=== PATIENT | male | born 1990 | race Caucasian/White ===

== ENCOUNTER 2018-11-21 20:48 | Emergency (ER) | payer SELFPAY ==
[2016-09-05 18:55] VITALS: Wt 108.0 kg
[~2018-11-21 20:48] MED LIST: BUPR-472 PO; CEPH500C24 PO; HYDR-385 PO; HYDR-653 PO; KET10 PO; LOR5/325 PO; MULT-865 PO; OMEP-137 PO; OMEP40CA48 PO; ONDA4TAB PO
[2018-11-21] MEDS ORDERED: ONDANSETRON 4 MG/2 ML VIAL IVP ONE (21:05)
[2018-11-21] MEDS ORDERED: NS(*) 0.9% 1000 ML BAG 1,000 ML IV ONE ×2 (21:05→22:50)
[2018-11-21] MEDS ORDERED: MORPHINE 4 MG/ML SDV IVP ONE (21:05)
[2018-11-21] MEDS ORDERED: ALBUTEROL/IPRATROPIUM 3 ML NEB NEB ONE (21:05)
--- NOTE | 2018-11-21 21:09 | ER Report ---
History and Physical Time Seen By MD: 20:57 Hx. of Stated Complaint: Pt. having chest pain and SOB since Noon today. Hypoxic 89% on room air. HR 123. BP 146/106. Low grade temp, 99.8. Productive cough, with white phlem. Diaphoretic. Midsternal chest pain /10. HPI/ROS CHIEF COMPLAINT: chest pain and shortness of breath HISTORY OF PRESENT ILLNESS: This is a 28 year old male. He started having chest pain and shortness of breath earlier today at about noon. Worsening, now very severe. Worsens with deep breaths. Seems deep in bases of lung area. Has some pain into abdomen as well. Has had a nonproductive cough. Has had some fevers as well. Nausea but no vomiting. No changes to urination or bowels. He denies history of heart problems or lung problems. He does drink a large amount daily, stopped 2 days ago. No recent travel. No known sick contacts. REVIEW OF SYSTEMS: Constitutional: Fevers as noted. Eyes: No vision changes. ENT: No sore throat. No congestion. Cardiovascular: No palpitations. Respiratory: As above. Gastrointestinal: As above. Genitourinary: As above. Musculoskeletal: Has some muscle aches. Skin: No rashes. Neurological: No weakness. Mild headache. Allergies: Coded Allergies: No Known Drug Allergies (Unverified , 11/21/18) Home Meds Active Scripts Omeprazole (OMEPRAZOLE) 20 Mg Capsule.dr, 1 CAP PO BID, #20 CAP 0 Refills Prov:GORGE ESPITIA MD 11/22/18 Lorazepam (ATIVAN) 0.5 Mg Tablet, 0.5 MG PO Q6H for 3 Days, #10 TAB 0 Refills Prov:GORGE ESPITIA MD 11/22/18 Oseltamivir Phosphate (TAMIFLU) 75 Mg Cap, 75 MG PO BID, #10 CAP 0 Refills Prov:GORGE ESPITIA MD 11/22/18 Hydrocodone Bit/Acetaminophen (HYDROCODON-ACETAMINOPHEN 5-325) 1 Each Tablet, 1 EACH PO Q4-6H PRN for PAIN, #12 TAB 0 Refills Prov:ALEXA GUALLPA CERTIFIED MEDICAL TECHNICIAN ASSISTANT-BC 02/23/18 Hydrocodone Bit/Acetaminophen (HYDROCODON-ACETAMINOPHEN 5-325) 1 Each Tablet, 1 EACH PO Q4-6H PRN for PAIN, #12 TAB Prov:KATIEMICHAEL QUEVEDOMARSHALL Blanca CERTIFIED MEDICAL TECHNICIAN ASSISTANT-BC 02/22/18 Ondansetron (ZOFRAN ODT) 4 Mg Tab.rapdis, 4 MG PO Q6H PRN for NAUSEA/VOMITING, #20 TAB.ANA CRISTINA Prov:ALEXA GUALLPA CERTIFIED MEDICAL TECHNICIAN ASSISTANT-BC 02/22/18 Hydrocodone Bit/Acetaminophen (HYDROCODON-ACETAMINOPHEN 5-325) 1 Each Tablet, 1- 2 EACH PO Q4-6H PRN for PAIN, #30 TAB Prov:MARCY ALLEN MD 12/25/16 Ketorolac Tromethamine (KETOROLAC TROMETHAMINE) 10 Mg Tab, 10 MG PO Q6H, #16 TAB Prov:MARCY ALLEN MD 12/25/16 Reported Medications Omeprazole (OMEPRAZOLE) 20 Mg Tablet.dr, 20 MG PO QDAY TAKE ONE TABLET BY MOUTH ONCE A DAY 10/18/14 Reviewed Nurses Notes: Yes Hx Smoking: Yes Smoking Status: Light Tobacco Smoker Exposure to Second Hand Smoke?: No Hx Substance Use Disorder: Yes (pot) Hx Alcohol Use: Yes Constitutional Vital Sign - Last 24 Hours 11/21/18 11/21/18 11/21/18 11/21/18 20:48 20:52 20:52 21:00 Temp 99.8 Pulse 125 115 Resp 20 B/P (MAP) 146/106 146/106 (119) 116/104 (108) Pulse Ox 88 O2 Delivery Room Air 11/21/18 11/21/18 11/21/18 11/21/18 21:18 21:20 21:20 21:26 Pulse 111 122 123 Resp Pulse Ox 97 94 O2 Delivery Nasal Cannula O2 Flow Rate 3.0 11/21/18 11/21/18 11/21/18 11/21/18 21:30 21:48 22:00 22:18 Pulse 110 108 B/P (MAP) 132/118 (123) 148/90 (109) Pulse Ox 99 100 11/21/18 11/21/18 11/21/18 11/21/18 22:30 22:30 23:10 23:30 Pulse 107 106 Resp 26 B/P (MAP) 116/71 (86) 116/71 (86) 129/61 (83) 109/49 (69) Pulse Ox 82 99 11/22/18 11/22/18 11/22/18 11/22/18 00:00 00:05 00:30 00:34 Pulse 103 103 Resp 22 26 B/P (MAP) 112/45 (67) 109/42 (64) Pulse Ox 91 O2 Delivery Room Air 11/22/18 00:35 Pulse 106 Resp 21 Physical Exam General Appearance: The patient is alert. No acute distress. Eyes: Pupils are equal, round. No pallor, injection or icterus. ENT: Mucous membranes are moist. Normal oral mucosa. Posterior oropharynx is normal. Neck: Supple and non tender. Respiratory: Lungs are diminished throughout, having some rhonchi. No wheezing or rales noted. Cardiovascular: Regular rate and rhythm. No murmurs, gallops or rubs. Normal capillary refill. Gastrointestinal: Abdomen is soft and non tender. Nondistended. Normal active bowel sounds. No costovertebral angle tenderness with percussion. Neurological: Alert and oriented x3. No focal neurologic deficits Skin: Warm and diaphoretic. Musculoskeletal: Extremities are nontender. DIFFERENTIAL DIAGNOSIS: After history and physical exam, differential diagnosis was considered for shortness of breath including but not limited to pulmonary infectious process, pericarditis, cardiac problem. alcohol withdrawal, pulmonary embolism, viral syndromes. Medical Decision Making Data Points Result Diagram: 11/21/18210311/21/182103 Laboratory Hematology Test 11/21/18 20:54 11/21/18 21:04 11/21/18 21:35 11/21/18 23:07 Influenza Virus Type A (PCR) Positive (NEGATIVE) Influenza Virus Type B (PCR) Negative (NEGATIVE) Red Blood Count 5.55 M/uL (4.00-5.60) Mean Corpuscular Volume 84.6 fL (80.0-96.0) Mean Corpuscular Hemoglobin 29.3 pg (26.0-33.0) Mean Corpuscular Hemoglobin Concent 34.7 g/dL (32.0-36.0) Red Cell Distribution Width 14.1 % (11.5-14.5) Mean Platelet Volume 9.2 fL (7.2-11.1) Neutrophils (%) (Auto) 81.0 % (39.4-72.5) Lymphocytes (%) (Auto) 6.4 % (17.6-49.6) Monocytes (%) (Auto) 11.0 % (4.1-12.4) Eosinophils (%) (Auto) 1.2 % (0.4-6.7) Basophils (%) (Auto) 0.4 % (0.3-1.4) Nucleated RBC Relative Count (auto) 0.0 /100WBC Neutrophils # (Auto) 6.1 K/uL (2.0-7.4) Lymphocytes # (Auto) 0.5 K/uL (1.3-3.6) Monocytes # (Auto) 0.8 K/uL (0.3-1.0) Eosinophils # (Auto) 0.1 K/uL (0.0-0.5) Basophils # (Auto) 0.0 K/uL (0.0-0.1) Nucleated RBC Absolute Count (auto) 0.00 K/uL D-Dimer Quantitative (PE/DVT) 0.31 ug/ml (0-0.50) Sodium Level 138 mmol/L (137-145) Potassium Level 4.3 mmol/L (3.5-5.0) Chloride Level 108 mmol/L (98-107) Carbon Dioxide Level 20 mmol/L (22-30) Blood Urea Nitrogen 12 mg/dl (9-21) Creatinine 1.10 mg/dl (0.66-1.25) Glomerular Filtration Rate Calc > 60.0 Random Glucose 101 mg/dl (75-110) Lactate 1.3 mmol/L (0.7-2.1) Calcium Level 10.2 mg/dl (8.4-10.2) Total Bilirubin 1.5 mg/dl (0.2-1.3) Aspartate Amino Transf (AST/SGOT) 44 U/L (0-35) Alanine Aminotransferase (ALT/SGPT) 50 U/L (0-56) Alkaline Phosphatase 92 U/L (0-126) Troponin I < 0.012 ng/ml Total Protein 8.3 g/dl (6.3-8.2) Albumin 5.0 g/dl (3.5-5.0) Amylase Level 57 U/L (0-110) Lipase 106 U/L (23-300) Erythrocyte Sedimentation Rate 7 mm/HOUR (0-15) C-Reactive Protein 1.8 mg/dl (<1.0) Urine Color Yellow Urine Clarity Clear Urine pH 6.0 pH (4.8-9.5) Urine Specific [place] 1.016 Urine Protein Negative mg/dL (NEGATIVE) Urine Glucose (UA) Negative mg/dL (NEGATIVE) Urine Ketones 20 mg/dL (NEGATIVE) Urine Blood Negative (NEGATIVE) Urine Nitrite Negative (NEGATIVE) Urine Bilirubin Negative (NEGATIVE) Urine Urobilinogen Negative mg/dL (0.2-1.9) Urine Leukocyte Esterase Negative (NEGATIVE) Urine RBC <1 /HPF (0-2/HPF) Urine WBC 1 /HPF (0-5/HPF) Urine Squamous Epithelial Cells None /LPF (</=FEW) Urine Bacteria Negative /HPF (NONE-FEW) Urine Mucus None /HPF (NONE-FEW) Chemistry Test 11/21/18 20:54 11/21/18 21:04 11/21/18 21:35 11/21/18 23:07 Influenza Virus Type A (PCR) Positive (NEGATIVE) Influenza Virus Type B (PCR) Negative (NEGATIVE) White Blood Count 7.5 k/uL (4.5-11.0) Red Blood Count 5.55 M/uL (4.00-5.60) Hemoglobin 16.3 g/dL (14.0-18.0) Hematocrit 47.0 % (42.0-52.0) Mean Corpuscular Volume 84.6 fL (80.0-96.0) Mean Corpuscular Hemoglobin 29.3 pg (26.0-33.0) Mean Corpuscular Hemoglobin Concent 34.7 g/dL (32.0-36.0) Red Cell Distribution Width 14.1 % (11.5-14.5) Platelet Count 189 K/uL (150-450) Mean Platelet Volume 9.2 fL (7.2-11.1) Neutrophils (%) (Auto) 81.0 % (39.4-72.5) Lymphocytes (%) (Auto) 6.4 % (17.6-49.6) Monocytes (%) (Auto) 11.0 % (4.1-12.4) Eosinophils (%) (Auto) 1.2 % (0.4-6.7) Basophils (%) (Auto) 0.4 % (0.3-1.4) Nucleated RBC Relative Count (auto) 0.0 /100WBC Neutrophils # (Auto) 6.1 K/uL (2.0-7.4) Lymphocytes # (Auto) 0.5 K/uL (1.3-3.6) Monocytes # (Auto) 0.8 K/uL (0.3-1.0) Eosinophils # (Auto) 0.1 K/uL (0.0-0.5) Basophils # (Auto) 0.0 K/uL (0.0-0.1) Nucleated RBC Absolute Count (auto) 0.00 K/uL D-Dimer Quantitative (PE/DVT) 0.31 ug/ml (0-0.50) Glomerular Filtration Rate Calc > 60.0 Lactate 1.3 mmol/L (0.7-2.1) Calcium Level 10.2 mg/dl (8.4-10.2) Total Bilirubin 1.5 mg/dl (0.2-1.3) Aspartate Amino Transf (AST/SGOT) 44 U/L (0-35) Alanine Aminotransferase (ALT/SGPT) 50 U/L (0-56) Alkaline Phosphatase 92 U/L (0-126) Troponin I < 0.012 ng/ml Total Protein 8.3 g/dl (6.3-8.2) Albumin 5.0 g/dl (3.5-5.0) Amylase Level 57 U/L (0-110) Lipase 106 U/L (23-300) Erythrocyte Sedimentation Rate 7 mm/HOUR (0-15) C-Reactive Protein 1.8 mg/dl (<1.0) Urine Color Yellow Urine Clarity Clear Urine pH 6.0 pH (4.8-9.5) Urine Specific [place] 1.016 Urine Protein Negative mg/dL (NEGATIVE) Urine Glucose (UA) Negative mg/dL (NEGATIVE) Urine Ketones 20 mg/dL (NEGATIVE) Urine Blood Negative (NEGATIVE) Urine Nitrite Negative (NEGATIVE) Urine Bilirubin Negative (NEGATIVE) Urine Urobilinogen Negative mg/dL (0.2-1.9) Urine Leukocyte Esterase Negative (NEGATIVE) Urine RBC <1 /HPF (0-2/HPF) Urine WBC 1 /HPF (0-5/HPF) Urine Squamous Epithelial Cells None /LPF (</=FEW) Urine Bacteria Negative /HPF (NONE-FEW) Urine Mucus None /HPF (NONE-FEW) Coagulation Test 11/21/18 21:04 D-Dimer Quantitative (PE/DVT) 0.31 ug/ml Urinalysis Test 11/21/18 23:07 Urine Color Yellow Urine Clarity Clear Urine pH 6.0 pH (4.8-9.5) Urine Specific [place] 1.016 Urine Protein Negative mg/dL (NEGATIVE) Urine Glucose (UA) Negative mg/dL (NEGATIVE) Urine Ketones 20 mg/dL (NEGATIVE) Urine Blood Negative (NEGATIVE) Urine Nitrite Negative (NEGATIVE) Urine Bilirubin Negative (NEGATIVE) Urine Urobilinogen Negative mg/dL (0.2-1.9) Urine Leukocyte Esterase Negative (NEGATIVE) Urine RBC <1 /HPF (0-2/HPF) Urine WBC 1 /HPF (0-5/HPF) Urine Squamous Epithelial Cells None /LPF (</=FEW) Urine Bacteria Negative /HPF (NONE-FEW) Urine Mucus None /HPF (NONE-FEW) EKG/Imaging EKG Interpretation 12 lead EKG: Rhythm: sinus tachycardia, rate 123 [place]: normal QRS: normal ST segments: normal Imaging EXAMINATION: Portable AP Chest HISTORY: Chest pain, shortness of breath. COMPARISON: None. FINDINGS: The lungs are clear. No focal consolidation or pleural effusion. No pneumothorax. Normal cardiomediastinal silhouette, with normal heart size and pulmonary vascularity. Visualized osseous structures are unremarkable. IMPRESSION: Negative chest. Report Dictated By: Johnny Velez MD at 11/21/2018 9:39 PM ED Course/Re-evaluation Clinical Indication for ER IV: Hydration, IV Access ED Course Initial evaluation, the patient was given a liter of normal saline, Zofran, and some morphine for pain. Did not really help a lot. He had a nebulizer treatment which perhaps helped a little bit. Went back in he is having possible withdrawal symptoms so did give him a little bit of Ativan. Also gave another liter of normal saline and some Toradol for pain. Then gave him Protonix and a GI cocktail. This helped him and he was feeling better. She levels also are impr courtney to 92% on room air. Discussed the symptoms with him and it appears he has alcoholic related gastritis as well as influenza. The rest of labs are unremarkable. We'll start him on Tamiflu. Also start him on omeprazole. Provided some Ativan to help with withdrawal symptoms and recommended to stop drinking. Decision to Disposition Date: Nov 22, 2018 Decision to Disposition Time: 00:24 Depart Departure Latest Vital Signs Vital Signs Date Time Temp Pulse Resp B/P (MAP) Pulse Ox O2 Delivery O2 Flow Rate FiO2 11/22/18 00:35 106 21 11/22/18 00:34 91 Room Air 11/22/18 00:30 109/42 (64) 11/21/18 21:20 3.0 11/21/18 20:52 99.8 Impression: Primary Impression: Influenza A Additional Impression: Gastritis Condition: Improved Disposition: HOME OR SELF-CARE New Scripts Omeprazole (OMEPRAZOLE) 20 Mg Capsule.dr 1 CAP PO BID, #20 CAP 0 Refills Prov: GORGE ESPITIA MD 11/22/18 Lorazepam (ATIVAN) 0.5 Mg Tablet 0.5 MG PO Q6H for 3 Days, #10 TAB 0 Refills Prov: GORGE ESPITIA MD 11/22/18 Oseltamivir Phosphate (TAMIFLU) 75 Mg Cap 75 MG PO BID, #10 CAP 0 Refills Prov: GORGE ESPITIA MD 11/22/18 Patient Instructions: Diet for Stomach Ulcers and Gastritis (ED), Gastritis (ED), Influenza (ED) Additional Instructions: You have influenza. Take Tamiflu 75mg twice a day for 5 days. Some of your symptoms are due to alcohol withdrawal and alcohol gastritis (inflammation and pain in the stomach from alcohol use). Take Omeprazole 20mg twice a day for the next two weeks. For withdrawal symptoms, you can take Ativan 0.5mg tablets every 6 hours as needed for withdrawal symptoms. Do not drink alcohol while taking this medicine. Problem Qualifiers Additional Impression: Gastritis Gastritis type: alcoholic Chronicity: acute Gastritis bleeding: without bleeding Qualified Codes: K29.20 - Alcoholic gastritis without bleeding GORGE ESPITIA MD Nov 21, 2018 21:09
[2018-11-21 21:21] LABS: PLATELET COUNT, AUTOMATED 189 K/uL (150-450)
--- NOTE | 2018-11-21 21:43 | RADIOLOGY IMAGING REPORT ---
FACILITY: [facility] PATIENT NAME: Adalberto Jarvis : 1990 MR: [id number] V: [id number] EXAM DATE: ORDERING PHYSICIAN: GORGE ESPITIA TECHNOLOGIST: Location: [facility] Patient: Adalberto Jarvis : 1990 Visit/Account:[id number] Date of Sevice: 11/21/2018 EXAMINATION: Portable AP Chest HISTORY: Chest pain, shortness of breath. COMPARISON: None. FINDINGS: The lungs are clear. No focal consolidation or pleural effusion. No pneumothorax. Normal cardiomedi astinal silhouette, with normal heart size and pulmonary vascularity. Visualized osseous structures are unremarkable. IMPRESSION: Negative chest. Report Dictated By: Johnny Velez MD at 11/21/2018 9:39 PM Report E-Signed By: Johnny Velez MD at 11/21/2018 9:39 PM WSN:[id number]
--- NOTE | 2018-11-21 22:26 | EKG ---
[place] [facility] [place] SAM ASIF : [id number] MR: [id number] V: [id number] EXAM DATE: ORDERING PHYSICIAN: GORGE ESPITIA TECHNOLOGIST: KODY Boykin Reason : Blood Pressure : / mmHG Vent. Rate : 123 BPM Atrial Rate : 123 BPM P-R Int : 132 ms QRS Dur : 082 ms QT Int : 296 ms P-R-T Axes : 015 042 019 degrees QTc Int : 423 ms Sinus tachycardia Otherwise normal ECG No previous ECGs available Confirmed by Gildardo Enriquez [id number] on 11/21/2018 10:51:10 PM Referred By: Confirmed By:Gildardo Mendez
[2018-11-21] MEDS ORDERED: LORazepam 2 MG/ML VIAL IVP ONE (22:50)
[2018-11-21] MEDS ORDERED: MAG HYD/AL HYD/SIMETH 30ML UDC PO ONE (22:55)
[2018-11-21] MEDS ORDERED: LIDOCAINE 2% VISC SLN 15ML UDC PO ONE (22:55)
[2018-11-21] MEDS ORDERED: KETOROLAC 30 MG/ML VIAL IVP ONE (22:55)
[2018-11-21] MEDS ORDERED: PANTOPRAZOLE SOD 40 MG IV VIAL IVP ONE (22:55)
[2018-11-21] MEDS ORDERED: ATRO/SCOPOL/HYOSCY/PB 5 ML ELX PO ONE (22:55)
[2018-11-22 00:30] VITALS: BP 109/42
[2018-11-22] MEDS ORDERED: LORA-1455 PO (00:40)
[2018-11-22] MEDS ORDERED: OMEP-125 PO (00:40)
[2018-11-22] MEDS ORDERED: OSE75 PO (00:40)
[2018-11-22] MEDS ORDERED: OSELTAMIVIR PHOS 75 MG CAP PO ONE (00:50)
[2018-11-22] MEDS ORDERED: LORazepam 0.5 MG TAB PO ONE (00:50)
== END 2018-11-22 01:00 | disposition home or self-care (01) ==
LOC: ER 20:55
DX: J11.1 Influenza due to unidentified influenza virus with other respiratory manifestations (principal); K29.20 Alcoholic gastritis without bleeding
CPT/HCPCS: 36415; 71045; 81001; 82150; 83605; 83690; 84484; 85025; 85379; 85651; 86140; 87040; 87502; 93005; 94640; 96361; 96374; 96375; 99284; C9113; J1885; J2060; J2270; J2405; J7030; J7620; 82040; 82247; 82310; 82374; 82435; 82565; 82947; 84075; 84132; 84155; 84295; 84450; 84460; 84520